=== PATIENT | male | born 1975 | race Caucasian/White ===

== ENCOUNTER 2020-12-23 06:02 | Emergency (ER) | payer MEDICAID ==
[~2020-12-23] VITALS: Ht 172.7 cm; Wt 77.1 kg
[2020-12-23] MEDS ORDERED: IBUPROFEN 800 MG TAB PO ONE (08:15)
[2020-12-23 08:33] VITALS: BP 142/76
== END 2020-12-23 08:38 | disposition home or self-care (01) ==
LOC: ER 06:02 → EDBD 06:02 → ER 08:38
DX: S93.402A Sprain of unspecified ligament of left ankle, initial encounter (principal); F17.210 Nicotine dependence, cigarettes, uncomplicated; X50.1XXA Overexertion from prolonged static or awkward postures, initial encounter; Y93.89 Activity, other specified; Y92.89 Other specified places as the place of occurrence of the external cause; Y99.8 Other external cause status
CPT/HCPCS: 73610; 73630

== ENCOUNTER 2021-05-05 20:09 | Emergency (ER) | payer MEDICAID ==
[~2021-05-05] VITALS: Ht 175.3 cm; Wt 86.2 kg
[2021-05-05 20:53] VITALS: BP 115/74
== END 2021-05-06 04:37 | disposition left against medical advice (07) ==
LOC: EDBD 20:09 → ER 20:10
DX: F41.9 Anxiety disorder, unspecified (principal); Z53.21 Procedure and treatment not carried out due to patient leaving prior to being seen by health care provider